=== PATIENT | female | born 1980 | race Caucasian/White ===

== ENCOUNTER 2016-10-08 11:31 | Outpatient (CLI) | END 2016-10-08 11:32 | disposition home or self-care (01) | LOC: LAB 11:31 | PROVIDERS: ATTEND Obstetrics & Gynecology | DX: R53.81 Other malaise (principal) | CPT/HCPCS: 36415; 82306; 84439; 84443 ==

== ENCOUNTER 2017-03-24 09:03 | Outpatient (CLI) ==
[2017-03-24 09:13] LABS: BASOPHILS # (AUTO) 0.1 K/uL (0-0.2); BASOPHILS % (AUTO) 0.7 % (0.0-3.0); EOSINOPHILS # (AUTO) 0.1 K/ul (0.0-0.7); EOSINOPHILS % (AUTO) 1.7 % (0.0-7.0); HEMATOCRIT 41.4 % (37.0-47.0); HEMOGLOBIN 13.9 g/dl (12.0-16.0); IMMATURE GRANULOCYTE % (AUTO) 0.4 % (0.0-5.0); LYMPHOCYTES # (AUTO) 2.1 K/uL (0.60-3.4); LYMPHOCYTES % (AUTO) 25.9 (10.0-50.0); MEAN CORPUSCULAR HEMOGLOBIN 28.1 pg (27.0-31.0); MEAN CORPUSCULAR HGB CONC 33.6 (31.8-35.4); MEAN CORPUSCULAR VOLUME 83.6 fl (81.0-99.0); MONOCYTES # (AUTO) 0.4 K/uL (0.4-2.0); MONOCYTES % (AUTO) 5.4 (0-10); NEUTROPHILS # (AUTO) 5.3 K/ul (2.0-6.9); NEUTROPHILS % (AUTO) 65.9; PLATELET COUNT 245 10^3/uL (140-440); RED BLOOD COUNT 4.95 10^6/ul (4.20-5.40); WHITE BLOOD COUNT 8.02 K/ul (4.6-10.2)
[2017-03-24 10:11] LABS: ALBUMIN 3.6 g/dL (3.4-5.0); ALBUMIN/GLOBULIN RATIO 1.13; BILIRUBIN,TOTAL 0.31 mg/dL (0.00-1.20); CALCIUM 8.9 mg/dL (8.2-10.2); CHOL/HDL RATIO 6.9 (4.5-5.5); CREATININE 0.75 mg/dL (0.60-1.30); TOTAL PROTEIN 6.8 g/dL (6.4-8.2)
== END 2017-03-24 09:04 ==
LOC: LAB 09:03
PROVIDERS: ATTEND Nurse Practitioner Family
DX: E55.9 Vitamin D deficiency, unspecified (principal); Z72.0 Tobacco use
CPT/HCPCS: 36415; 80053; 80061; 82306; 84443; 85025

== ENCOUNTER 2017-07-22 12:50 | Outpatient (CLI) ==
[2017-07-22 13:19] LABS: ALBUMIN 3.7 g/dL (3.4-5.0); ALBUMIN/GLOBULIN RATIO 1.09; ANION GAP 15.1; BILIRUBIN,TOTAL 0.33 mg/dL (0.00-1.20); BUN/CREATININE RATIO 14.08; CALCIUM 9.6 mg/dL (8.2-10.2); CHOL/HDL RATIO 5.4 (4.5-5.5); CREATININE 0.71 mg/dL (0.60-1.30); POTASSIUM 4.1 mmol/L (3.5-5.10); TOTAL PROTEIN 7.1 g/dL (6.4-8.2)
== END 2017-07-22 12:51 | disposition home or self-care (01) ==
LOC: LAB 12:50
PROVIDERS: ATTEND Nurse Practitioner Family
DX: E78.5 Hyperlipidemia, unspecified (principal)
CPT/HCPCS: 36415; 80053; 80061

== ENCOUNTER 2017-09-25 08:31 | Outpatient (CLI) ==
[2017-09-25 09:27] LABS: ALANINE AMINOTRANSFERASE 16 U/L (12-78); ALBUMIN 3.5 g/dL (3.4-5.0); ALKALINE PHOSPHATASE 75 U/L (42-98); ANION GAP 11.8; ASPARTATE AMINO TRANSFERASE 15 U/L (15-37); BLOOD UREA NITROGEN 11 mg/dL (7-18); BUN/CREATININE RATIO 15.49; CALCIUM 9.4 mg/dL (8.2-10.2); CARBON DIOXIDE 26 mmol/L (21-32); CHLORIDE 109 mmol/L (98-107); CHOL/HDL RATIO 5.1 (4.5-5.5); CHOLESTEROL 215 mg/dL (0-200); CREATININE 0.71 mg/dL (0.60-1.30); GLUCOSE 111 mg/dL (70-110); HDL CHOLESTEROL 42 mg/dL (35-80); POTASSIUM 3.8 mmol/L (3.5-5.10); SODIUM 143 mmol/L (136-145); TRIGLYCERIDES 246 mg/dL (30-150); VLDL CHOLESTEROL 49 mg/dL (2-30)
[2017-09-25 09:30] LABS: BILIRUBIN,TOTAL < 0.3 mg/dL (0.00-1.20)
== END 2017-09-25 08:32 | disposition home or self-care (01) ==
LOC: LAB 08:31
PROVIDERS: ATTEND Nurse Practitioner Family
DX: E78.5 Hyperlipidemia, unspecified (principal)
CPT/HCPCS: 36415; 80053; 80061

== ENCOUNTER 2017-10-24 09:08 | Outpatient (CLI) | END 2017-10-24 09:09 | disposition home or self-care (01) | LOC: LAB 09:08 | PROVIDERS: ATTEND Nurse Practitioner Family | DX: E78.5 Hyperlipidemia, unspecified (principal); E78.1 Pure hyperglyceridemia | CPT/HCPCS: 36415; 80053; 80061 ==

== ENCOUNTER 2017-10-29 08:46 | Outpatient (CLI) ==
--- NOTE | 2017-10-29 11:20 | MRI ---
EXAM: MRI left forearm without and with contrast. 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 Tumor removed from wrist approximate 17 years ago. Pain and numbness and left wrist and hand . Lesion characterized on MRI left forearm 09/11/2011 with history of venous malformation reported. Embolization March 2012. TECHNIQUE: Using a local coil on a high field strength magnet multiplanar multisequence large field of view imaging obtained through the level of the left forearm pre and post intravenous gadolinium co ntrast administration. 19 ml Omniscan administered for the examination. Note this constitutes incom plete MR evaluation of the left wrist as well as left elbow.. COMPARISON: MRI left wrist 07/30/2011. MRI left forearm 09/11/2011. MRI left forearm 07/31/2012.. FINDINGS: Visualized bone marrow signal intensity of the left radius and ulna shows no acute fractur e, stress fracture or discrete lytic or blastic lesion. Within the more superficial volar soft tissues of the distal left forearm is again noted the patients prior seen mass. This is centered approximate 23 mm proximal to the radiocarpal joint space. A port ion of this lesion extends and abuts the skin surface.. This mass is insinuated beneath the flexor c arpi radialis and palmaris longus tendons abutting the more ulnar flexor digitorum musculature and s uperficial/overlying the more deep pronator quadratus muscle as well as more deep flexor digitorum pr ofundus tendons. This mass is again multi lobulated and somewhat serpiginous. Dark T1 bright T2/STI R signal intensity with intense enhancement. Overall 55 mm in length. Approximate 10 mm deep from th e skin surface and 21 mm wide. Prominent surrounding fat signal intensity. Overall similar signal in tensity appearance and morphology. Essentially unchanged extent verse 07/31/2012. No other skip lesi ons identified. Otherwise the muscle bulk of the anterior and posterior compartments of the left for earm show normal signal intensity.. IMPRESSION: Essentially unchanged signal intensity appearance and morphology as well as extent to a enhancing soft tissue mass within the superficial volar soft tissues of the distal left forearm. Kno wn diagnosed venous malformation. Prior remote embolization. Recommend surgical consultation and / or vascular interventional consultation if further characterization and treatment is clinically indic ated. Recommendation is obtainment and correlation with plain film radiographs of the left forearm as none are available for comparison at the time of this dictation.
== END 2017-10-29 08:47 | disposition home or self-care (01) ==
LOC: RAD 08:46
PROVIDERS: ATTEND Nurse Practitioner Family
DX: Q27.9 Congenital malformation of peripheral vascular system, unspecified (principal); M25.532 Pain in left wrist; G89.29 Other chronic pain; R20.0 Anesthesia of skin

== ENCOUNTER 2018-02-02 09:31 | Outpatient (CLI) | END 2018-02-02 09:32 | disposition home or self-care (01) | LOC: LAB 09:31 | PROVIDERS: ATTEND Nurse Practitioner Family | DX: E78.1 Pure hyperglyceridemia (principal); E78.5 Hyperlipidemia, unspecified | CPT/HCPCS: 36415; 80053; 80061 ==

== ENCOUNTER 2018-06-12 10:17 | Outpatient (CLI) | END 2018-06-12 10:18 | disposition home or self-care (01) | LOC: LAB 10:17 | PROVIDERS: ATTEND Nurse Practitioner Family | DX: E78.5 Hyperlipidemia, unspecified (principal); E78.1 Pure hyperglyceridemia; Z72.0 Tobacco use | CPT/HCPCS: 36415; 80053; 80061; 84443; 85025 ==

== ENCOUNTER 2018-11-16 09:13 | Outpatient (CLI) | END 2018-11-16 09:14 | disposition home or self-care (01) | LOC: LAB 09:13 | PROVIDERS: ATTEND Nurse Practitioner Family | DX: E78.5 Hyperlipidemia, unspecified (principal); E78.1 Pure hyperglyceridemia | CPT/HCPCS: 36415; 80053; 80061 ==

== ENCOUNTER 2019-06-07 08:22 | Outpatient (CLI) | END 2019-06-07 08:23 | disposition home or self-care (01) | LOC: LAB 08:22 | PROVIDERS: ATTEND Nurse Practitioner Family | DX: E78.5 Hyperlipidemia, unspecified (principal); E78.1 Pure hyperglyceridemia; Z72.0 Tobacco use | CPT/HCPCS: 36415; 80053; 80061; 84443; 85025 ==